=== PATIENT | female | born 1965 | race Caucasian/White ===

== ENCOUNTER 2020-04-08 22:15 | Emergency (ER) | payer SELFPAY ==
[~2020-04-08] VITALS: Ht 165.1 cm; Wt 82.6 kg
[2020-04-08 22:18] VITALS: Ht 165.1 cm; Wt 82.6 kg
[2020-04-09 01:42] LABS: BASOPHIL % 0.9 % (0.2-1.3); PLATELET COUNT 298 x10^3mcL (179-408); RED CELL DISTRIBUTION WIDTH 13.3 % (12.3-17.7)
[2020-04-09 01:54] LABS: CALCIUM 9.2 mg/dL (8.5-10.1); CHLORIDE SERUM 104 mmol/L (98-107); CREATININE SERUM 0.9 mg/dL (0.6-1.0); GFR1 > 60 mL/min; GLUCOSE SERUM 122 mg/dL (74-106); POTASSIUM SERUM 4.4 mmol/L (3.5-5.1); SODIUM SERUM 141 mmol/L (136-145)
[2020-04-09 01:58] LABS: ALBUMIN 4.1 g/dL (3.4-5.0); ALKALINE PHOSPHATASE 137 U/L (46-116); ALT/SGPT 81 U/L (14-59); AST/SGOT 21 U/L (15-37); BILIRUBIN TOTAL 0.35 mg/dL (0.20-1.00); LIPASE 142 IU/L (73-393); TOTAL PROTEIN, SERUM 7.6 g/dL (6.4-8.2)
[2020-04-09 04:15] VITALS: BP 131/99
== END 2020-04-09 04:15 | disposition home or self-care (01) ==
LOC: ED 22:15
PROVIDERS: Emergency Medicine
DX: K80.50 Calculus of bile duct without cholangitis or cholecystitis without obstruction (principal); E78.00 Pure hypercholesterolemia, unspecified
CPT/HCPCS: J1885